=== PATIENT | male | born 1950 | race Caucasian/White ===

== ENCOUNTER 2023-03-05 14:31 | Emergency (ER) | payer MEDICARE, BC ==
[~2023-03-05] VITALS: Ht 188 cm; Wt 89.8 kg
[~2023-03-05 14:31] MED LIST: ASPI-605 PO; ATOR20TA PO; FINA5TAB4 PO; NIAC1CAP PO
--- NOTE | 2023-03-05 14:36 | NUR ---
[id number] FOR SYNCOPAL EPISODE 30MINS AGO. HYPOTENSIVE AT "90'S SYSTOLIC" ON SCENE. BG 182. PLACED IN BED, AAOX4, BREATHING EVEN AND UNLABORED SATURATING AT 97%RA
--- NOTE | 2023-03-05 15:15 | NUR ---
AUTO BODY REPAIRER AT BEDSIDE
[2023-03-05] MEDS ORDERED: IV NS 0.9% 1,000 ML BAG IV ONE (15:30)
--- NOTE | 2023-03-05 15:59 | NUR ---
RECEIVED A CALL FROM DR. MEADOWS TO SPEAK WITH DR. PIERRE. DR. PIERRE NOT ABLE TO TAKE THE CALL AT THIS TIME. REQUESTED FOR A CALL BACK. CALL BACK #: [phone]
[2023-03-05 16:04] LABS: BASOPHILS % (AUTO) 0.3 % (0.0-2.0); EOSINOPHILS % (AUTO) 0.7 % (0.0-6.0); HEMATOCRIT 44 % (39-51); HEMOGLOBIN 14.7 g/dL (13.5-17.5); LYMPHOCYTES # (AUTO) 0.7 K/uL (0.8-4.8); LYMPHOCYTES % (AUTO) 10.8 % (20.0-44.0); MEAN CORPUSCULAR HGB CONC 34 g/dl (31.0-36.0); MEAN CORPUSCULAR VOLUME 91 fL (80-96); MONOCYTES % (AUTO) 15.2 % (2.0-12.0); NEUTROPHILS # (AUTO) 4.7 K/uL (1.8-8.9); PLATELET COUNT (AUTO) 161 K/uL (150-450); RED BLOOD CELL COUNT(AUTO) 4.83 MIL/uL (4.5-6.0); WHITE BLOOD COUNT (AUTO) 6.5 K/uL (4.3-11.0)
--- NOTE | 2023-03-05 16:12 | NUR ---
CALLED DR. MEADOWS TO SPEAK WITH DR. PIERRE ABOUT PT'S CONDITION. WILL CALL BACK WHEN RESULTS ARE READY.
[2023-03-05 16:14] LABS: CARBON DIOXIDE 28 mmol/L (21-32); CHLORIDE 103 mmol/L (98-107); CREATININE 1.1 mg/dL (0.6-1.3); GLUCOSE 127 mg/dL (74-106); POTASSIUM 3.8 mmol/L (3.5-5.1); SODIUM SERUM 138 mmol/L (136-145); UREA NITROGEN, BLOOD 22 mg/dL (7-18)
[2023-03-05 16:20] LABS: ALANINE AMINOTRANSFERASE 24 U/L (12-78); ALBUMIN 3.4 g/dL (3.4-5.0); ALKALINE PHOSPHATASE 54 U/L (46-116); ASPARTATE AMINOTRANSFERASE 15 U/L (15-37); BILIRUBIN,DIRECT 0.1 mg/dL (0.0-0.2); BILIRUBIN,TOTAL 0.8 mg/dL (0.2-1.0); TOTAL PROTEIN, SERUM 7.1 g/dL (6.4-8.2)
--- NOTE | 2023-03-05 18:05 | NUR ---
Patient discharged to home in stable condition. Written and verbal after care instructions given. Patient verbalizes understanding of instruction.IV removed. Catheter intact and site benign. Pressure and 4x4 applied to site. No bleeding noted.
[2023-03-05 18:14] VITALS: BP 134/85
== END 2023-03-05 18:14 | disposition home or self-care (01) ==
LOC: ER 14:34
DX: J06.9 Acute upper respiratory infection, unspecified (principal); R05.9 Cough, unspecified; R55 Syncope and collapse; Z98.890 Other specified postprocedural states; Z79.899 Other long term (current) drug therapy; Z79.82 Long term (current) use of aspirin; Z91.040 Latex allergy status
CPT/HCPCS: 36415; 71045-TC; 80048-TC; 80076-TC; 82962-TC; 83880; 84484-TC; 85025-TC; 85730-TC; J7030